=== PATIENT | female | born 1970 | race Caucasian/White ===

== ENCOUNTER → 2020-02-17 14:12 | Outpatient (CLI) | payer OTHER, SELFPAY ==
--- NOTE | ~2020-02-17 | MM_ITS ---
EXAMINATION: MM screening ade BI w reilly HISTORY: Screening mammogram TECHNIQUE: Craniocaudal and mediolateral oblique 3-D tomosynthesis images were obtained and synthetic 2-D images were generated. CAD analysis was submitted and interpreted. COMPARISON: 02/11/2019, 11/11/2017, 10/04/2016 bilateral digital screening mammogram examinations BREAST PARENCHYMAL COMPOSITION: The breasts are almost entirely fatty. FINDINGS: There is no evidence of suspicious mass, calcification, or architectural distortion to sugg est malignancy in either breast. There has been no suspicious interval change. IMPRESSION: 1. No mammographic evidence of malignancy. 2. Recommend routine screening mammography in one year. BI-RADS Category 1: Negative Reviewed, dictated and finalized at location A.
== END ==
PROVIDERS: PCP Family Medicine; Visit Provider Obstetrics & Gynecology
DX: Z12.31 Encounter for screening mammogram for malignant neoplasm of breast (principal)
CPT/HCPCS: 77063; 77067

== ENCOUNTER → 2021-04-12 11:23 | Outpatient (CLI) | payer OTHER, SELFPAY ==
--- NOTE | ~2021-04-12 | MM_ITS ---
EXAMINATION: MM screening [facility] BI w reilly HISTORY: Screening mammogram TECHNIQUE: Craniocaudal and mediolateral oblique 3-D tomosynthesis images were obtained and synthetic 2-D images were generated. CAD analysis was submitted and interpreted. COMPARISON: 02/17/2020, 02/11/2019 BREAST PARENCHYMAL COMPOSITION: The breasts are almost entirely fatty. FINDINGS: There is no evidence of suspicious mass, calcification, or architectural distortion to sugg est malignancy in either breast. There has been no suspicious interval change. IMPRESSION: 1. No mammographic evidence of malignancy. 2. Recommend routine screening mammography in one year. BI-RADS Category 1: Negative Reviewed, dictated and finalized at location A. 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
== END ==
PROVIDERS: PCP Family Medicine; Visit Provider Family Medicine
DX: Z12.31 Encounter for screening mammogram for malignant neoplasm of breast (principal)
CPT/HCPCS: 77063; 77067

== ENCOUNTER → 2022-05-14 12:49 | Outpatient (CLI) | payer OTHER, SELFPAY ==
--- NOTE | ~2022-05-14 | MM_ITS ---
EXAMINATION: MM screening ade BI w reilly HISTORY: Screening TECHNIQUE: Craniocaudal and mediolateral oblique 3-D tomosynthesis images were obtained and synthetic 2-D images were generated. CAD analysis was submitted and interpreted. COMPARISON: Comparison to multiple prior studies sequentially, with oldest reviewed study dated . BREAST PARENCHYMAL COMPOSITION: The breasts are almost entirely fatty. FINDINGS: There is no evidence of suspicious mass, calcification, or architectural distortion to sugg est malignancy in either breast. There has been no suspicious interval change. IMPRESSION: 1. No mammographic evidence of malignancy. 2. Recommend routine screening mammography in one year. BI-RADS Category 1: Negative Reviewed, dictated and finalized at location A. 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
== END ==
PROVIDERS: PCP Family Medicine; Visit Provider Family Medicine
DX: Z12.31 Encounter for screening mammogram for malignant neoplasm of breast (principal)
CPT/HCPCS: 77063; 77067

== ENCOUNTER 2022-07-31 08:00 | Outpatient (NON) | payer OTHER, SELFPAY | END 2022-07-31 08:01 | disposition home or self-care (01) | LOC: ANHLAB 08-01 09:17 | PROVIDERS: PCP Family Medicine; Visit Provider Internal Medicine Gastroenterology | DX: Z12.11 Encounter for screening for malignant neoplasm of colon (principal) | CPT/HCPCS: 88305 ==

== ENCOUNTER 2022-07-31 10:59 | Day surgery (SDC) | payer OTHER, SELFPAY ==
[2022-07-19 12:05] VITALS: BMI 25.4
--- NOTE | 2022-07-31 09:16 | WPDANESEPPF ---
Anes - Initial Pre Proc Eval Procedure: Operation Date: 07/31/22 12:30 Proposed Procedures p Screening Colonoscopy - Jay Moura MD Date/Time: 07/31/22 09:16 Surgeon: Jay Moura MD Pre Op Diagnosis: Neoplasm Screening Patient Data Age: 52 Gender: F Height: 1.55 m Weight: 61 kg Allergies Allergy/AdvReac Type Severity Reaction Status Date / Time No Known Allergies Allergy Unverified 09/24/13 16:41 Home Medications Medication Instructions Recorded Confirmed Type apremilast 30 mg tablet (Otezla) 15 mg PO BID 02/13/21 07/19/22 History zolmitriptan 5 mg tablet (Zomig) 5 mg PO .COMPLEX PRN migraine 03/25/22 07/19/22 Rx headache #12 tabs cholecalciferol (vitamin D3) 25 1,000 unit PO DAILY 06/03/22 07/19/22 History mcg (1,000 unit) capsule multivitamin 1 tablet PO DAILY 06/03/22 07/19/22 History Patient hx anesthesia problems: none Family hx anesthesia problems: none Results Review: All pre-operative results and documents have been reviewed as part of the pre-operative evaluation. [facility] Past Medical History Medical History (Updated 06/03/22 @ 09:13 by Robbie Chinchilla MD) Abnormal fasting glucose (~03/30/21) glucose slightly elevated at 102 on 03/30/2021. Glucose 106 with hemoglobin A1c 5.4 on 12/20/2021. Glucose 98 with hemoglobin A1c 5.5 on 05/29/2022. BMI 27.0-27.9,adult Breast cancer screening by mammogram normal mammogram 04/12/2021. Normal mammogram 05/14/2022. Colon cancer screening COVID-19 (~04/2020) 2nd episode 2020. Unvaccinated Elevated TSH (03/30/21) TSH slightly elevated at 4.9 on 03/30/2021. TSH 3.49 with free T4 1.3 on 12/20/2021. TSH normal at 3.23 with free T4 1.1 on 05/29/2022. Encounter for wellness examination in adult Mixed hyperlipidemia total cholesterol 236, triglycerides 151, HDL 58 and LDL 150 with ratio of 4.1 on 03/30/2021. Total collapse dural tumor and 17, HDL 59, triglycerides 87, LDL 139 on 12/20/2021. Total cholesterol 218, triglycerides 150, HDL 59, LDL 133 on 05/29/2022. Overweight (BMI 25.0-29.9) Psoriasis Seborrhea-like dermatitis with psoriasiform elements Vitamin D deficiency, unspecified vitamin-D level 30 on 03/30/2021. Normal at 43 on 05/29/2022. Social History Social History (Updated 06/03/22 @ 08:36 by Adele Nolasco MA) Smoking status: Never smoker Alcohol intake: never Substance use: never Substance use type: does not use Current Housing: Decline to Answer Concerned About Future Housing: Decline to Answer Difficulty Paying Gas/Electric Bills: Decline to Answer Difficulty Paying for Meds: Decline to Answer Currently Unemployed: Decline to Answer Education: Decline to Answer Difficulty w/ Childcare or Family Care: Decline to Answer Living arrangements: with family Spiritual care concerns: No Anes - Eval Final PreProcedure Day of Procedure 07/31/22 09:16 Patient weight: normal Heart: regular rate and rhythm Lungs: clear to auscultation and normal air movement Airway: Mallampati scale class II Neurological: alert and oriented Last oral intake: >/= 8 hours ASA classification: II Emergent: no Anesthetic plan: proceed Anesthesia type and monitoring: general GIVS Results Review: All pre-operative results and documents have been reviewed as part of the pre-operative evaluation. Informed Consent: The patient's anesthetic plan and its attendant risks and benefits were discussed with the patient/family/POA. Questions were solicited and answers provided to the satisfaction of the patient/family/POA.
[2022-07-31 11:30] VITALS: BP 136/81; PULSE 77; RESP 20; TEMP 37.1; O2SAT 100
[2022-07-31] MEDS: LACTATED RINGERS 1,000 ML 150 ML IV CONT (11:46)
--- NOTE | 2022-07-31 12:14 | PM.HPGS ---
History of Present Illness History of Present Illness Consent: Risks, benefits, and alternatives have been discussed and questions answered. Patient agrees to proceed with procedure. Chief complaint: Neoplasm Screening Narrative: Brad Abernathy is a 52 year old female here for first screening colonoscopy Review of Systems Constitutional: Constitutional: Denies headache(s) and Denies weakness Eyes: Eyes: Denies blurry vision ENT: Reports Normal hearing present, Denies headache(s) and Denies neck pain Cardiovascular: Cardiovascular: Denies chest pain and Denies dyspnea Respiratory: Respiratory: Denies dyspnea Gastrointestinal: Gastrointestinal: Reports no additional gastrointestinal complaints Genitourinary: Genitourinary: Denies dysuria Musculoskeletal: Musculoskeletal: Denies neck pain Integumentary/Breasts: Skin/Breast: Denies dry skin Neurologic: Reports Normal hearing present, Denies headache(s) and Denies weakness Psychiatric: Psychiatric: Denies anxiety Endocrine: Endocrine: Denies change in body appearance Hematologic/Lymphatic: Hematologic/Lymphatic: Denies easy bleeding Allergic/Immunologic: Allergic/Immunologic: Denies urticaria [facility] Past Medical History Medical History (Updated 06/03/22 @ 09:13 by Robbie Chinchilla MD) Abnormal fasting glucose (~03/30/21) glucose slightly elevated at 102 on 03/30/2021. Glucose 106 with hemoglobin A1c 5.4 on 12/20/2021. Glucose 98 with hemoglobin A1c 5.5 on 05/29/2022. BMI 27.0-27.9,adult Breast cancer screening by mammogram normal mammogram 04/12/2021. Normal mammogram 05/14/2022. Colon cancer screening COVID-19 (~04/2020) 2nd episode 2020. Unvaccinated Elevated TSH (03/30/21) TSH slightly elevated at 4.9 on 03/30/2021. TSH 3.49 with free T4 1.3 on 12/20/2021. TSH normal at 3.23 with free T4 1.1 on 05/29/2022. Encounter for wellness examination in adult Mixed hyperlipidemia total cholesterol 236, triglycerides 151, HDL 58 and LDL 150 with ratio of 4.1 on 03/30/2021. Total collapse dural tumor and 17, HDL 59, triglycerides 87, LDL 139 on 12/20/2021. Total cholesterol 218, triglycerides 150, HDL 59, LDL 133 on 05/29/2022. Overweight (BMI 25.0-29.9) Psoriasis Seborrhea-like dermatitis with psoriasiform elements Vitamin D deficiency, unspecified vitamin-D level 30 on 03/30/2021. Normal at 43 on 05/29/2022. Social History Social History (Updated 06/03/22 @ 08:36 by Adele Nolasco MA) Smoking status: Never smoker Alcohol intake: never Substance use: never Substance use type: does not use Current Housing: Decline to Answer Concerned About Future Housing: Decline to Answer Difficulty Paying Gas/Electric Bills: Decline to Answer Difficulty Paying for Meds: Decline to Answer Currently Unemployed: Decline to Answer Education: Decline to Answer Difficulty w/ Childcare or Family Care: Decline to Answer Living arrangements: with family Spiritual care concerns: No Meds Home Medications and Allergies Home Medications Medication Instructions Recorded Confirmed Type apremilast 30 mg tablet (Otezla) 15 mg PO BID 02/13/21 07/31/22 History zolmitriptan 5 mg tablet (Zomig) 5 mg PO .COMPLEX PRN migraine 03/25/22 07/31/22 Rx headache #12 tabs cholecalciferol (vitamin D3) 25 1,000 unit PO DAILY 06/03/22 07/31/22 History mcg (1,000 unit) capsule multivitamin 1 tablet PO DAILY 06/03/22 07/31/22 History Allergies Allergy/AdvReac Type Severity Reaction Status Date / Time No Known Allergies Allergy Unverified 07/31/22 11:55 Vital Signs Vital Signs - 24 hr 07/31/22 11:30 Temperature 98.8 F Pulse Rate 77 Respiratory Rate 20 Blood Pressure 136/81 Pulse Oximetry 100 Oxygen Delivery Room Air Exam Const: General: comfortable and no acute distress HENMT: Face/Nose/Sinus: Normal nares present Eyes: General: appearance normal, both eyes and all related structures Neck: Neck: no JVD Resp: A
[2022-07-31 12:37] VITALS: BP 97/62; PULSE 78; RESP 16; O2SAT 99
[2022-07-31 12:47] VITALS: BP 120/70; PULSE 66; RESP 17; O2SAT 100
[2022-07-31 12:57] VITALS: BP 120/88; PULSE 56; RESP 16; O2SAT 100
--- NOTE | 2022-07-31 14:21 | WPDANESPN ---
Anes - Prog Note Post-Op Date/Time: 07/31/22 14:21 Cardiovascular status: normal Respiratory status: normal Airway patency: baseline Mental status: baseline Post-Op hydration status: normal Vital Signs: Last Vital Signs Temp 37.1 C 07/31/22 11:30 Pulse 56 L 07/31/22 12:57 Resp 16 07/31/22 12:57 BP 120/88 07/31/22 12:57 Pulse Ox 100 07/31/22 12:57 O2 Del Method Room Air 07/31/22 12:57 Pain Score (VAS): 0 I/O: Intake & Output 07/30/22 07/31/22 07/31/22 23:59 07:59 15:59 Intake Total 400 Balance 400 Post-procedural complaints: none Patient Feedback: Patient satisfied with anesthetic care.
== END 2022-07-31 13:14 | disposition home or self-care (01) ==
PROVIDERS: PCP Family Medicine; Visit Provider Internal Medicine Gastroenterology
PROC: 0DJD8ZZ Inspection of Lower Intestinal Tract, Via Natural or Artificial Opening Endoscopic (ICD-10-PCS; CPT 45378; principal; 2022-07-31 12:30)
DX: Z12.11 Encounter for screening for malignant neoplasm of colon (principal)
CPT/HCPCS: 45380

== ENCOUNTER → 2023-06-27 12:18 | Outpatient (CLI) | payer OTHER, SELFPAY ==
--- NOTE | ~2023-06-27 | MM_ITS ---
EXAMINATION: MM screening ade BI w reilly HISTORY: Screening TECHNIQUE: Craniocaudal and mediolateral oblique 3-D tomosynthesis images were obtained and synthetic 2-D images were generated. CAD analysis was submitted and interpreted. COMPARISON: Comparison to multiple prior studies sequentially, with oldest reviewed study dated 10/04. BREAST PARENCHYMAL COMPOSITION: Not Dense: Breast are almost entirely fatty. FINDINGS: There is no evidence of suspicious mass, calcification, or architectural distortion to sugg est malignancy in either breast. There has been no suspicious interval change. IMPRESSION: 1. No mammographic evidence of malignancy. 2. Recommend routine screening mammography in one year. BI-RADS Category 1: Negative Reviewed, dictated and finalized at location A. 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
== END ==
PROVIDERS: PCP Family Medicine; Visit Provider Family Medicine
DX: Z12.31 Encounter for screening mammogram for malignant neoplasm of breast (principal)
CPT/HCPCS: 77063; 77067

== ENCOUNTER 2024-07-28 12:45 | Outpatient (CLI) | payer BC, SELFPAY ==
--- NOTE | ~2024-07-28 | MM_ITS ---
EXAMINATION: MM screening ade BI w reilly HISTORY: Screening mammogram TECHNIQUE: Craniocaudal and mediolateral oblique 3-D tomosynthesis images were obtained and synthetic 2-D images were generated. CAD analysis was submitted and interpreted. COMPARISON: 06/27/2023, 05/14/2022, 04/12/2021 BREAST PARENCHYMAL COMPOSITION:Not Dense. The breasts are almost entirely fatty FINDINGS: No suspicious mass, calcification, or architectural distortion are identified in either jayant ast to suggest malignancy. There has been no suspicious interval change. IMPRESSION: No mammographic evidence of malignancy. Recommend routine screening mammography in one year. BI-RADS Category 1: Negative Reviewed, dictated and finalized at location . 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
== END 2024-07-28 12:46 | disposition home or self-care (01) ==
LOC: MICIMG 12:46
PROVIDERS: PCP Family Medicine; Visit Provider Family Medicine
DX: Z12.31 Encounter for screening mammogram for malignant neoplasm of breast (principal)
CPT/HCPCS: 77063; 77067